=== PATIENT | female | born 1975 | race American Indian/Alaskan Native ===

== ENCOUNTER 2020-11-26 23:15 | Emergency (ER) | payer BC ==
[2020-11-27 00:03] VITALS: BP 133/63
[2020-11-27] MEDS ORDERED: ACETAMINOPHEN W/CODEINE 300-30 MG TAB PO ONE (02:52)
[2020-11-27] MEDS ORDERED: IBUPROFEN 600 MG TAB PO ONE (02:52)
--- NOTE | 2020-11-27 03:19 | XRay Report ---
CHEST 2 VIEWS INDICATION / CLINICAL INFORMATION: cough and sob. COMPARISON: None available. FINDINGS: SUPPORT DEVICES: None. HEART / MEDIASTINUM: No significant abnormality. LUNGS / PLEURA: Mildly reduced lung volumes are noted with bibasilar opacities. The upper lungs are c lear. No significant pleural effusion. No pneumothorax. ADDITIONAL FINDINGS: No significant additional findings. IMPRESSION: Probable bibasilar atelectasis. Signer Name: Ricardo Mobley MD Signed: 11/27/2020 3:15 AM Workstation Name: [id number]
--- NOTE | 2020-11-27 04:22 | Emergency Department Report ---
- General Chief Complaint: Upper Respiratory Infection Stated Complaint: COLD/COUGHING/NO APPETITE Time Seen by Provider: 11/27/20 01:05 Source: patient Mode of arrival: Ambulatory Limitations: No Limitations - History of Present Illness Initial Comments: 45-year-old [place] female [facility] emerge department complaining of new a few day history of cough congestion coryza with few purulent brown mucus production. She states that she is been having some excessive coughing spells with fever soles of diarrhea is as well with a sudden onset. She reports no known contact with coronavirus with physical to be a possibility. She reports no hemoptysis no hematemesis hematochezia, no dysuria no hematuria MD Complaint: fever, cough, rhinorrhea, nasal congestion -: Gradual Severity: mild Quality: dull Consistency: constant Improves With: nothing Worsens With: nothing Associated Symptoms: chills, myalgias, rhinorrhea, nasal congestion, cough. denies: nausea, vomiting, confusion, right sweats, epistaxis Treatments Prior to Arrival: none - Related Data Previous Rx's Medication Instructions Recorded Last Taken Type Albuterol Mdi (or & Nicu Only) 2 puff IH QID PRN #1 inhalation 11/27/20 Unknown Rx [ProAir HFA Inhaler] Azithromycin [Zithromax] 500 mg PO QDAY #5 tablet 11/27/20 Unknown Rx guaiFENesin/CODEINE [Robitussin AC] 5 ml PO Q6H PRN #120 ml 11/27/20 Unknown Rx predniSONE [Deltasone] 20 mg PO QDAY #5 tab 11/27/20 Unknown Rx Allergies Allergy/AdvReac Type Severity Reaction Status Date / Time Penicillins Allergy Unknown Verified 11/27/20 00:04 ED Review of Systems ROS: Stated complaint: COLD/COUGHING/NO APPETITE Other details as noted in HPI Comment: All other systems reviewed and negative ED Past Medical Hx - Past Medical History Previous Medical History?: No - Surgical History Past Surgical History?: No - Medications Home Medications: Home Medications Medication Instructions Recorded Confirmed Last Taken Type Albuterol Mdi (or & Nicu Only) 2 puff IH QID PRN #1 inhalation 11/27/20 Unknown Rx [ProAir HFA Inhaler] Azithromycin [Zithromax] 500 mg PO QDAY #5 tablet 11/27/20 Unknown Rx guaiFENesin/CODEINE [Robitussin AC] 5 ml PO Q6H PRN #120 ml 11/27/20 Unknown Rx predniSONE [Deltasone] 20 mg PO QDAY #5 tab 11/27/20 Unknown Rx ED Physical Exam - General Limitations: No Limitations General appearance: alert, in no apparent distress - Head Head exam: Present: atraumatic, normocephalic - Eye Eye exam: Present: normal appearance - ENT ENT exam: Present: mucous membranes moist - Neck Neck exam: Present: normal inspection - Respiratory Respiratory exam: Present: normal lung sounds bilaterally, decreased breath sounds (Decreased breath sounds at the bases). Absent: respiratory distress - Cardiovascular Cardiovascular Exam: Present: regular rate, normal rhythm. Absent: systolic murmur, diastolic murmur, rubs, gallop - GI/Abdominal GI/Abdominal exam: Present: soft, normal bowel sounds - Extremities Exam Extremities exam: Present: normal inspection - Back Exam Back exam: Present: normal inspection - Neurological Exam Neurological exam: Present: alert, oriented X3 - Psychiatric Psychiatric exam: Present: normal affect, normal mood - Skin Skin exam: Present: warm, dry, intact, normal color. Absent: rash ED Course Vital Signs 11/27/20 11/27/20 00:00 04:50 Temperature 100.3 F H Pulse Rate 107 H 87 Respiratory 14 17 Rate Blood Pressure 133/63 O2 Sat by Pulse 97 97 Oximetry ED Medical Decision Making - Radiology Data Radiology results: report reviewed [facility] [address] [place] [address] XRay Report Signed Patient: CONCHIS BRISCOE MR#: [id number] 275 : 1975 Acct:[id number] Age/Sex: 45 / F ADM Date: 11/26/20 Loc: ED Attending Dr: Ordering Physician: SELINA ANGULO Date of Service: 11/27/20 Procedure(s): XR chest routine 2V Accession Number(s): [id number] cc: SELINA ANGULO Fluoro Time In Minutes: CHEST 2 VIEWS INDICATION / CLINICAL INFORMATION: cough and sob. COMPARISON: None available. FINDINGS: SUPPORT DEVICES: None. HEART / MEDIASTINUM: No significant abnormality. LUNGS / PLEURA: Mildly reduced lung volumes are noted with bibasilar opacities. The upper lungs are clear. No significant pleural effusion. No pneumothorax. ADDITIONAL FINDINGS: No significant additional findings. IMPRESSION: Probable bibasilar atelectasis. Signer Name: Ricardo Mobley MD Signed: 11/27/2020 3:15 AM Workstation Name: [id number] Transcribed By: SHEREEN Dictated By: Ricardo Mobley MD Electronically Authenticated By: Ricardo Mobley MD Signed Date/Time: 11/27/20314 DD/DT: 07 - Medical Decision Making This patient presents with acute cough, most consistent with with bronchitis/mild pneumonia. Differential diagnosis includes pneumonia, hyperreactive airway disease, bronchitis, COVID-19. Presentation not consistent with acute bacterial pneumonia, influenza, asthma, transient airway hyperresponsiveness. Presentation not consistent with chronic causes of cough (including GERD, asthma, postnasal discharge, medication side effect, CHF, lung cancer or mass). Plan: CXR, supportive care, reassess Critical care attestation.: If time is entered above; I have spent that time in minutes in the direct care of this critically ill patient, excluding procedure time. ED Disposition Clinical Impression: Cough, Fever Disposition: DC-01 TO HOME OR SELFCARE Is pt being admited?: No Does the pt Need Aspirin: No Condition: Stable Instructions: Cough, Adult, Community-Acquired Pneumonia, Adult Prescriptions: predniSONE [Deltasone] 20 mg PO QDAY #5 tab Albuterol Mdi (or & Nicu Only) [ProAir HFA Inhaler] 2 puff IH QID PRN #1 inhalation PRN Reason: Shortness Of Breath guaiFENesin/CODEINE [Robitussin AC] 5 ml PO Q6H PRN #120 ml PRN Reason: Cough Azithromycin [Zithromax] 500 mg PO QDAY #5 tablet Referrals: OCTAVIO DAN MD [Staff Physician] - 3-5 Days
== END 2020-11-27 04:50 | disposition home or self-care (01) ==
LOC: ED 23:15
DX: R05 Cough (principal); R09.81 Nasal congestion; M79.18 Myalgia, other site
CPT/HCPCS: 71046; 99283